=== PATIENT | female | born 1960 | race Caucasian/White ===

== ENCOUNTER → 2016-06-16 | Outpatient (CLI) | payer OTHER ==
--- NOTE | 2016-06-16 16:57 | CT ---
EXAMINATION TYPE: CT abdomen pelvis w con DATE OF EXAM: 06/16/2016 1:28 PM COMPARISON: None at this location. INDICATION: pt preparing for reversal of Colostomy DLP: 1134.9 mGycm, Automated exposure control for dose reduction was used. CONTRAST: 100 mL of Omnipaque 300. Study performed with Oral Contrast TECHNIQUE: Axial images were obtained from above the diaphragm to the pubic rami in the axial plane a t 5 mm thick sections. Reconstructed images are reviewed on the computer in the coronal plane. FINDINGS: Limited CT sections are obtained the lung bases. The lung bases are clear. CT ABDOMEN: Liver: There is a 2.5 x 1.7 cm hypodensity within the superior lateral right lobe liver. This is less well-defined on the early phase contrast but appears better delineated on the delayed images. This m easures 27 Hounsfield units. Small amount of low density may be adjacent to the right lobe of the maya er could be some fluid. Spleen: Normal Pancreas: Normal Adrenal glands: The adrenal glands are normal. Gallbladder: Normal Kidneys: No masses are evident. No hydronephrosis is present. There may be a 2.6 cm cyst measuring 9 Hounsfield units distending from the lateral inferior pole right kidney. The borders are indistinct . Delayed images were obtained through the kidneys. Tiny cortical renal cyst at the inferior anterio r pole right kidney is noted. A mid left renal cortex cyst is present Aorta: Vascular calcification is within the aorta. Inferior vena cava: Normal. CT PELVIS: There is a colostomy in the left anterior and within. Oral contrast extends distal small bowel loops. Distal colon appears decompressed There are loops of bowel which are incompletely distended or lack oral contrast limiting their evaluation. There is made of diverticular changes within the ascending c olon and ascending colon Posterior to the umbilicus there appears to be some increased inflammatory type change in the mesente ry. This is nonspecific. No discrete abscess is identified. No free air is evident. This is best visu alized series 4 image 53, series 8 image 20. Appendix: Normal as visualized. Urinary bladder: Normal. Genitourinary structures: Uterus appears unremarkable. Adnexal regions are clear. Osseous structures: No suspicious lytic or sclerotic lesions. Facet changes are within the lumbar spi ne. IMPRESSIONS: 1. Scattered diverticulosis. 2. Inflammatory change may be within the mesentery posterior to the periumbilical region of uncertain etiology. No abscess formation is evident this region. 3. Hypodensity adjacent to or within the right lobe of liver near the diaphragm. Abscess is not exclu ded. Cyst could be considered
== END | disposition home or self-care (01) ==
LOC: RADCTMAIN 12:36
PROVIDERS: ATTEND Surgery
DX: K57.90 Diverticulosis of intestine, part unspecified, without perforation or abscess without bleeding (principal)
CPT/HCPCS: 74177; Q9967

== ENCOUNTER → 2016-07-10 | Outpatient (CLI) | payer OTHER ==
--- NOTE | 2016-07-10 10:48 | MM ---
Reason for exam: follow-up at short interval from prior study. Last mammogram was performed 6 months ago. History: Patient is postmenopausal and had first child at age 31. Family history of breast cancer in maternal grandmother at age 38 and breast cancer in paternal grandmother at age 81. Benign core biopsy of the left breast, 2003. Reductions of both breasts, March 2002. Physical Findings: Nurse did not find any significant physical abnormalities on exam. MG Diagnostic Mammo LT w CAD CC, MLO, and LM view(s) were taken of the left breast. Prior study comparison: December 29, 2015, left breast MG work up mamm w CAD LT. December 27, 2015, bilateral MG screening mammo w CAD. The breast tissue is almost entirely fat. Finding: There are grouped/clustered calcifications in the left breast. There is a chronic nodularity in the left breast. No significant changes in finding since December 29, 2015 and December 27, 2015. These results were verbally communicated with the patient and result sheet given to the patient on 07/10/16. ASSESSMENT: Benign, BI-RAD 2 RECOMMENDATION: Return to routine screening mammogram schedule for both breasts. Back on schedule for December 2016.
== END | disposition home or self-care (01) ==
LOC: RADMAMWWP 09:33
PROVIDERS: ATTEND Obstetrics & Gynecology
DX: R92.8 Other abnormal and inconclusive findings on diagnostic imaging of breast (principal)

== ENCOUNTER → 2016-07-14 | Outpatient (CLI) | payer OTHER ==
[2016-07-14 16:38] LABS: Partial Thromboplastin Time 26.9 sec (22.0-30.0); Prothrombin Time 19.3 sec (9.0-12.0)
== END ==
LOC: LABWHC1 15:38
PROVIDERS: ATTEND Family Medicine
DX: I48.91 Unspecified atrial fibrillation (principal)
CPT/HCPCS: 36415; 85610; 85730

== ENCOUNTER 2016-08-07 07:06 | Inpatient (IN) | payer OTHER ==
[2016-08-01 16:53] VITALS: BMI 29.0
[~2016-08-07 07:06] MED LIST: DEXAMETHASONE SOD PHOSPHATE 10 MG/ML 1 ML VIAL IV ONE; HEPARIN SODIUM,PORCINE 5,000 UNIT/ML 1 ML VIAL SQ ONE; HYDROmorphone 1 MG/ML 1 ML SYRINGE IVP PRN; MIDAZOLAM 2 MG/2 ML VIAL IV PRN; ONDANSETRON 4 MG/2 ML VIAL IVP ONE; ceFAZolin 2 GM in SODIUM CHLORIDE 0.9% 100 ML IVPB ONE; metroNIDAZOLE-NS PMX 500 MG in SALINE 1 100ML.BAG IVPB ONE
[2016-08-07] MEDS ORDERED: LIDOCAINE 1% 20 ML VIAL (10MG/ML) FOR IV START INTRADERMA ONE (07:40)
[2016-08-07] MEDS: LACTATED RINGERS 1,000 ML IV SCH ×2 (07:40→08:58)
[2016-08-07 07:58] LABS: Basophils % (A) 1 %; CH 26.5; CHCM 32.7; Eosinophils # (A) 0.3 k/uL (0-0.7); Eosinophils % (A) 4 %; HCT 39.3 % (34.0-46.0); HDW 2.63; Luc # (Auto) 0.25; Luc % (Auto) 3; Lymphocytes # (A) 2.7 k/uL (1.0-4.8); Lymphocytes % (A) 37 %; MCH 26.8 pg (25.0-35.0); MCV 81.1 fL (80.0-100.0); Mean Platelet Volume 6.8; Monocytes # (A) 0.5 k/uL (0-1.0); Monocytes % (A) 7 %; Neutrophils # (A) 3.6 k/uL (1.3-7.7); Neutrophils % (A) 48 %; RBC 4.85 m/uL (3.80-5.40); RDW 15.7 % (11.5-15.5); WBC 7.4 k/uL (3.8-10.6); WBC (Perox) 7.41
[2016-08-07 08:06] LABS: ALT 30 U/L (9-52); AST 34 U/L (14-36); Alkaline Phosphatase 98 U/L (38-126); Anion Gap 13 mmol/L; Blood Urea Nitrogen 18 mg/dL (7-17); Calcium 9.8 mg/dL (8.4-10.2); Carbon Dioxide 23 mmol/L (22-30); Chloride 108 mmol/L (98-107); Glucose 97 mg/dL (74-99); INR 1.1 (<1.1); Non-African American GFR(MDRD) >60 (>60 ml/min/1.73 sqM); Potassium 4.2 mmol/L (3.5-5.1); Prothrombin Time 11.1 sec (9.0-12.0); Sodium 144 mmol/L (137-145); Total Bilirubin 0.7 mg/dL (0.2-1.3); Total Protein 8.1 g/dL (6.3-8.2)
[2016-08-07 08:28] LABS: Partial Thromboplastin Time 18.6 sec (22.0-30.0)
[2016-08-07] MEDS ORDERED: MIDAZOLAM 2 MG/2 ML VIAL ONE (08:59)
[2016-08-07] MEDS ORDERED: SUCCINYLCHOLINE CHLORIDE 100 MG/5 ML SYR IV ONE (08:59)
[2016-08-07] MEDS ORDERED: HEPARIN SODIUM,PORCINE 5,000 UNIT/ML 1 ML VIAL ONE (08:59)
[2016-08-07] MEDS ORDERED: LIDOCAINE 1% INJ 10MG/ML (20 ML MDV) ONE (08:59)
[2016-08-07] MEDS ORDERED: fentaNYL (PF) 50 MCG/ML 2 ML AMP ONE (08:59)
[2016-08-07] MEDS ORDERED: WATER FOR INJECTION, STERILE 10 ML VIAL IV ONE (08:59)
[2016-08-07] MEDS ORDERED: VECURONIUM 10 MG VIAL IV ONE (08:59)
[2016-08-07] MEDS ORDERED: PROPOFOL 10 MG/ML 20 ML VIAL IV ONE (08:59)
[2016-08-07] MEDS ORDERED: NALOXONE 0.4 MG/ML 1 ML VIAL IV PRN (09:01)
[2016-08-07] MEDS ORDERED: SODIUM CHLORIDE 0.9% 50 ML with ceFAZolin 2,000 MG IV ONE ×2 (09:07)
[2016-08-07] MEDS ORDERED: LACTATED RINGERS 1,000 ML IV ONE (09:50)
[2016-08-07] MEDS ORDERED: MEPERIDINE 50 MG/ML SYRINGE IVP ONE ×2 (11:09→11:34)
[2016-08-07] MEDS ORDERED: Antibiotics per Pharmacy 1 EACH MISC MISCELLANE PRN (11:10)
[2016-08-07] MEDS ORDERED: HYDROmorphone 1 MG/ML 1 ML SYRINGE IV PRN (11:22)
[2016-08-07] MEDS ORDERED: ONDANSETRON 4 MG/2 ML VIAL IVP PRN (11:24)
--- NOTE | 2016-08-07 11:31 | P.OP ---
Date of Procedure: 08/07/16 Preoperative Diagnosis: History of diverticulitis status post Bon sigmoid resection for perforation and abscess. Postoperative Diagnosis: Same Procedure(s) Performed: Takedown of sigmoid colostomy with the sigmoid rectal circular stapler the anastomosis Anesthesia: NIKA Surgeon: Aditya Lucio Estimated Blood Loss (ml): 150 Urine output (ml): 200 Pathology: other (Colostomy stoma with the anastomotic doughnuts) Condition: stable Disposition: PACU Indications for Procedure: The patient is a 56-year-old white female who more than 2 months ago underwent a Bon sigmoid resection for perforated diverticulitis with abscess of subsequent colonoscopy was unremarkable. Comes in for closure of colostomy and informed consent was obtained procedure having being explained to her including potential complication particular bleeding infection leak Surrounding injury etc. she understood and agreed to proceed. Operative Findings: Sigmoid colostomy with intra-abdominal adhesions. Some diverticulosis. Description of Procedure: After induction of general endotracheal anesthesia both lower extremities were placed in the low lithotomy position. He was placed. The colostomy stoma was closed with running 2-0 silk the skin over the stoma. The abdominal wall was then prepped with Betadine and draped as was the rectal area. Midline incision was made along her previous scar transferred to separate copious subcutaneous tissues. The fascia and peritoneum were then incised. The omental and small bowel adhesions were lysed. Bookwalter retractor was placed. Dignified by the Prolene sutures with an event. The stump was retracted up and mobilized. The stoma was then mobilized and delivered into the peritoneal cavity. The descending colon was mobilized all the way up to and including the splenic flexure circular staple anastomosis was then accomplished with the sterile tubing and inserted through the rectum over 29 mm stapler anastomosis being done. No evidence of leakage when tested under saline. Tissue at the anastomotic site on the shaft of the stapler. They pelvis and peritoneal cavity were thoroughly irrigated. Hemostasis was good and the field was dry. The posterior sheath and peritoneum at the colostomy site was closed with running 2-0 Vicryl. The fascia was closed with the running #1 PDS. Incision was closed also with running #1 double-stranded PDS the fascia. Subcutaneous tissues at both sides were thoroughly irrigated and the skin closed with marlo. Telfa jody were placed in between the marlo at the colostomy site. Dressings were applied. All counts were correct estimated blood loss 150 bowels. The patient was stable and was transferred to the recovery room in good and stable condition.
[2016-08-07] MEDS ORDERED: MIDAZOLAM 2 MG/2 ML VIAL IVP ONE (11:53)
[2016-08-07 13:42] LABS: Basophils % (A) 0 %; CH 26.3; CHCM 31.9; Eosinophils % (A) 0 %; HCT 37.9 % (34.0-46.0); HDW 2.57; HGB 12.4 gm/dL (11.4-16.0); Luc # (Auto) 0.04; Luc % (Auto) 0; Lymphocytes # (A) 1.3 k/uL (1.0-4.8); Lymphocytes % (A) 11 %; MCHC 32.6 g/dL (31.0-37.0); MCV 82.7 fL (80.0-100.0); Mean Platelet Volume 6.9; Monocytes # (A) 0.2 k/uL (0-1.0); Monocytes % (A) 2 %; Neutrophils # (A) 9.9 k/uL (1.3-7.7); Neutrophils % (A) 87 %; RBC 4.58 m/uL (3.80-5.40); RDW 15.6 % (11.5-15.5); WBC 11.5 k/uL (3.8-10.6); WBC (Perox) 11.99
[2016-08-07 13:52] LABS: ALT 28 U/L (9-52); AST 33 U/L (14-36); Alkaline Phosphatase 87 U/L (38-126); Anion Gap 11 mmol/L; Blood Urea Nitrogen 17 mg/dL (7-17); Calcium 9.4 mg/dL (8.4-10.2); Carbon Dioxide 22 mmol/L (22-30); Chloride 109 mmol/L (98-107); Glucose 118 mg/dL (74-99); Non-African American GFR(MDRD) >60 (>60 ml/min/1.73 sqM); Potassium 4.2 mmol/L (3.5-5.1); Sodium 142 mmol/L (137-145); Total Bilirubin 0.5 mg/dL (0.2-1.3); Total Protein 7.3 g/dL (6.3-8.2)
[2016-08-07] MEDS: MORPHINE SULFATE 4 MG/ML SYRINGE IVP PRN ×3 (14:04→21:54)
--- NOTE | 2016-08-07 15:48 | CONS ---
DATE OF CONSULTATION: REASON FOR CONSULTATION: Medical management of hypertension admitted to the hospital for elective reversal of sigmoid colostomy. The patient tolerated the procedure well. Patient underwent sigmoid colostomy reversal with sigmoid rectal circular stapler anastomosis. The patient currently on epidural for pain management. Patient otherwise denied any nausea or vomiting. No clubbing or cyanosis, chest pain or shortness of breath. No fever. No chills. Patient requesting pain medications. Medicine services has been consulted for ( ) medications and Coumadin monitoring. REVIEW OF SYSTEMS: CONSTITUTIONAL: No fever. No chills. RESPIRATORY: No cough or sputum production. CARDIOVASCULAR: No chest pain or shortness of breath. ABDOMEN: No nausea, vomiting. The patient does have abdominal pain. No diarrhea. RESPIRATORY: No cough or sputum production. GENITOURINARY: Negative. ENDOCRINE: Negative. PSYCHIATRIC: Negative. SKIN: Negative. MUSCULOSKELETAL: Negative. All other 14 point review of systems negative except as above. PAST MEDICAL HISTORY: Includes: 1. Hypertension. 2. History of provoked deep venous thrombosis in March 2016 followed by surgery. Currently on Coumadin. 3. Diverticulitis with perforated sigmoid colon and abscess. PAST SURGICAL HISTORY: Colonoscopy and a colostomy bag placement and abdominal surgery. FAMILY HISTORY: History of breast cancer in the family. Denied any history of hypertension. Does not have a history of diabetes mellitus or hypertension. SOCIAL HISTORY: Patient had a previous history of smoking; quit 30 years ago. Denies any alcohol use. Denied any drugs or IVDU. ALLERGIES: LATEX. Home medications include: 1. Amitriptyline. 2. Biotin. 3. Cardizem. 4. Docusate. 5. Hydrocodone. 6. Metoprolol. 7. Multivitamins. 8. Polyethylene glycol. 9. Potassium gluconate. 10. Colace. 11. Warfarin. PHYSICAL EXAMINATION: A 56-year-old female, lying in the bed comfortably, awake, alert, oriented, x3. He appears to be in mild distress due to pain. VITALS: Blood pressure is 128/68, pulse is 60, respirations 16, temperature afebrile. Pulse ox 99% on 2 L nasal cannula. HEENT: Atraumatic, normocephalic. Neck is supple. No JVD. CVS: S1, S2 heard. No murmurs, no gallop. LUNGS: Bilateral air entry is present. No wheezing. No crackles. Nonlabored breathing. ABDOMEN: Soft, tenderness at the surgical site. Bowel sounds are absent. No palpable organomegaly. No guarding. No rigidity. MEDICAL UNDERWRITER: Awake, alert, oriented, x3. No focal deficits. EXTREMITIES: No edema. Pulses palpable bilaterally. No clubbing or cyanosis. PSYCHIATRIC: Cooperative. LABORATORY DATA: WBC 11.5, hemoglobin 12.4, platelets 282, RDW 15.6, INR 1.1. Sodium 142, potassium 4.2, chloride 109, bicarb is 22. BUN 17. Creatinine 0.74. Blood sugar is 118, albumin 3.9. Operative report reviewed. IMPRESSION: 1. Status post reversal of sigmoid colostomy bag and anastomosis. Postoperative day 0. 2. History of perforated diverticulitis March 2016. 3. History of provoke deep venous thrombosis in March 2016 currently on anticoagulation with Coumadin. 4. Hypertension. Blood pressure is not elevated. I will hold blood pressure medications. 5. Deep venous thrombosis prophylaxis. 6. Anxiety. DISCUSSION AND PLAN: The patient will be continued on IV fluids and pain management. Currently n.p.o. except ice chips. Continue to hold blood pressure medications as the blood pressure is not elevated at this time, we will start back on blood pressure medications if start rising up. Patient will be started back on Coumadin tomorrow and continue with incentive spirometry and further recommendations based on the clinical course.
[2016-08-07] MEDS: HEPARIN SODIUM,PORCINE 5,000 UNIT/ML 1 ML VIAL SQ SCH (21:15)
[2016-08-08] MEDS: diphenhydrAMINE 50 MG/ML 1 ML VIAL IVP PRN ×2 (00:04→05:04)
[2016-08-08] MEDS: MORPHINE SULFATE 4 MG/ML SYRINGE IVP PRN ×6 (01:53→21:41)
[2016-08-08] MEDS: SODIUM CHLORIDE 0.9% 1,000 ML IV SCH ×4 (01:53→20:52)
[2016-08-08] MEDS: TEMAZEPAM 15 MG CAP PO PRN ×2 (02:00→21:41)
[2016-08-08] MEDS: BUPIVACAINE (PF) 0.5% 31.3 ML, HYDROmorphone 5 MG in SODIUM CHLORIDE 0.9% 216 ML EPIDURAL PRN (05:33)
[2016-08-08 07:47] LABS: Anion Gap 6 mmol/L; Blood Urea Nitrogen 13 mg/dL (7-17); Calcium 8.7 mg/dL (8.4-10.2); Carbon Dioxide 26 mmol/L (22-30); Chloride 109 mmol/L (98-107); Glucose 95 mg/dL (74-99); Non-African American GFR(MDRD) >60 (>60 ml/min/1.73 sqM); Potassium 4.5 mmol/L (3.5-5.1); Sodium 141 mmol/L (137-145)
[2016-08-08] MEDS: HEPARIN SODIUM,PORCINE 5,000 UNIT/ML 1 ML VIAL SQ SCH ×2 (08:46→20:53)
--- NOTE | 2016-08-08 09:05 | P.PN ---
Progress Note - Text 0804 Anesthesia POD 1. Status Post colostomy reversal under general endotracheal anesthesia with an epidrual catheter placed at L3 4 for post surgical pain releif. VAS (4, 6) with Bupivicaine 0.0625 % and Dilaudid 20 mcg / cc running at 8 cc / hr. Lower extremity strength (4/4). Minimal sedation. Site looks OK.
--- NOTE | 2016-08-08 11:25 | P.PN ---
Progress Note - Text The patient is afebrile. Vitals are stable. She is awake alert. Still a fair amount of discomfort despite the epidural. Her to be reduced because of itching. She is ambulatory no nausea or vomiting. Tolerating clear fluids by mouth. Urine output is good. Abdomen usual postoperative tenderness. Stable course. labsNoted. We'll advance her diet tomorrow. Add Ofirmev.
[2016-08-08] MEDS: ACETAMINOPHEN IV (For NPO) 1,000 MG in EMPTY BAG 1 BAG IVPB SCH ×3 (12:02→23:50)
[2016-08-08] MEDS: LACTATED RINGERS 1,000 ML IV SCH (12:07)
[2016-08-09] MEDS: MORPHINE SULFATE 4 MG/ML SYRINGE IVP PRN ×4 (04:14→18:06)
[2016-08-09] MEDS: SODIUM CHLORIDE 0.9% 1,000 ML IV SCH ×2 (05:43→19:26)
[2016-08-09] MEDS: ACETAMINOPHEN IV (For NPO) 1,000 MG in EMPTY BAG 1 BAG IVPB SCH (05:43)
[2016-08-09] MEDS: LACTATED RINGERS 1,000 ML IV SCH (06:33)
--- NOTE | 2016-08-09 07:38 | P.PN ---
Progress Note - Text The patient is afebrile. Vitals are stable. She is tolerating full liquid diet. Passing a [place] flatus. Abdomen is soft with usual postoperative tenderness. Stable postop. We will increase her diet. CORNELIO Lawrence.
[2016-08-09] MEDS: HEPARIN SODIUM,PORCINE 5,000 UNIT/ML 1 ML VIAL SQ SCH ×2 (07:54→21:22)
[2016-08-09] MEDS ORDERED: HYDROcodone/APAP 7.5-325MG 1 EACH TAB PO PRN (08:00)
--- NOTE | 2016-08-09 08:38 | P.PN ---
Progress Note - Text 08/09 656 am 56-year-old name status post colostomy reversal by Dr. Lucio. Patient has an epidural for postop pain control with the solution running at 12 mL an hour, patient is very uncomfortable yesterday and I increase the rate from 7-12 mL an hour. She also has started passing gas and is much more comfortable, she has no sensory or motor deficit and some ambulating well
--- NOTE | 2016-08-09 10:21 | PN ---
DATE OF SERVICE: 08/08/2016 Ms. Maldonado is a 56-year-old female with known history of hypertension, and history of perforated sigmoid colon and colostomy bag placement, admitted to the hospital for colostomy reversal. The patient tolerated the procedure well. Otherwise, patient is still complaining of abdominal pain today. Still maintained on epidural. Otherwise, the patient is able to ambulate in the hallways. Patient did not have a bowel movement today. No flatus yet. Otherwise, the patient is hemodynamically stable. Denied any complaints of chest pain or short of breath. REVIEW OF SYSTEMS: CONSTITUTIONAL: No fever. No chills. No weakness or malaise. RESPIRATORY: No cough or sputum production. CARDIOVASCULAR: No chest pain or shortness of breath. ABDOMEN: No nausea. The patient does have abdominal pain. No diarrhea. GENITOURINARY: Negative. ENDOCRINE: Negative. PSYCHIATRY: Negative. SKIN: Negative. MUSCULOSKELETAL: Negative. All other 14 point review of systems negative except as above. Current medications are reviewed. PHYSICAL EXAMINATION: 56-year-old female, lying in bed comfortably, awake, alert, oriented, x3. Appears to be in no apparent distress. VITALS: Blood pressure is 127/80, pulse 90, respiratory rate 16, temperature afebrile. Pulse ox 96% on room air. HEENT: Atraumatic, normocephalic. Neck is supple. No JVD. CARDIOVASCULAR: S1, S2 heard. No murmurs. No rubs. No gallops. LUNGS: Bilateral air entry is present. No wheezing. No crackles. ABDOMEN: Soft, mild tenderness over the surgical site. Bowel sounds are not heard. No guarding. No rigidity. DIRECTOR MISSION: Awake, alert, oriented, x3. No focal deficit. EXTREMITIES: No edema. Pulses palpable bilaterally. No clubbing or cyanosis. PSYCHIATRIC: Cooperative. LABORATORY DATA: Shows sodium 141, potassium 4.5, chloride 109, bicarb is 26. BUN 13, creatinine 0.81. IMPRESSION: 1. Status post reversal of sigmoid colostomy bag and anastomosis postoperative day one. 2. History of perforated diverticulitis March 2016. 3. History of provoked deep venous thrombosis in March 2016, currently on anticoagulation with Coumadin. 4. Hypertension, controlled. 5. Deep venous thrombosis prophylaxis. 6. Anxiety. DISCUSSION AND PLAN: Patient will be continued on pain management with epidural. Continue the IV fluids and encourage ambulation. Continue incentive spirometry. Otherwise, continue current management ( ) based on clinical course.
--- NOTE | 2016-08-09 16:34 | PN ---
Patient is a 56 -year-old admitted for sigmoid colectomy with ( ). Previous sigmoid colectomy with colostomy. Patient is passing gas. Did not move her bowel yet ( ) patient had post surgery DVT, patient is presently on subcutaneous heparin. If okay with surgery I will go ahead and start her back on her Coumadin. I do not believe patient will need bridging at this point of time. REVIEW OF SYSTEMS: CARDIOVASCULAR: No chest pain, no orthopnea, no PND, no palpitations. PULMONARY: Denied any shortness of breath. No cough or hemoptysis. GASTROINTESTINAL: Patient did not move her bowels but she has passed gas. ( ) bowel sounds. NEUROLOGIC: No headaches, no weakness, no numbness. Medications were reviewed. The patient still has some soreness in the abdomen. Medication reconciliation was done. On physical examination, temperature 99,5, pulse of 98, respiratory rate of 16, blood pressure is 141/82, saturating at 94% on room air. GENERAL: The patient is alert and oriented x3, not in any acute distress. Well developed, well nourished. HEENT: Pupils are round and equally reacting to light. EOMI. No scleral icterus. No conjunctival pallor. Normocephalic, atraumatic. No pharyngeal erythema. No thyromegaly. CARDIOVASCULAR: S1 and S2 present. No murmurs, rubs, or gallops. PULMONARY: Chest is clear to auscultation, no wheezing or crackles. ABDOMEN: ( ) No rebound or rigidity. Patient does have mild soreness and ( ) tenderness from surgery still and the patient has acute bowel sounds. MUSCULOSKELETAL: No joint swelling or deformity. EXTREMITIES: No cyanosis, clubbing, or pedal edema. NEUROLOGICAL: Gross neurological examination did not reveal any focal deficits. SKIN: No rashes. LABORATORY DATA: None available from today. Patient did have leukocytosis a couple of days ago. Probably a reactive response from surgery. I will obtain repeat labs tomorrow. Patient is hyperchloremic and the patient continues to be on normal saline which I will go ahead and discontinue as patient is tolerating oral diet well. ASSESSMENT AND PLAN: 1. Status post reversal of sigmoid colectomy and anastomosis. 2. Deep venous thrombosis recently in March 2016. Patient will be reinitiated back on Coumadin. 3. Hypertension, the patient restarted back on her metoprolol. The patient is mildly tachycardic because of not being on metoprolol. 4. History of perforated diverticulitis. 5. Anxiety disorder. PLAN: As mentioned above. Patient is on Cardizem as well at home, which we will reinitiate back. Patient denied any history of atrial fibrillation though.
[2016-08-09] MEDS ORDERED: NON-FORMULARY DRUG (Biotin [Biotin] 5 MG) PO SCH (17:00)
[2016-08-09] MEDS: DILTIAZEM CD 180 MG CAP.ER.24H PO SCH (17:41)
[2016-08-09] MEDS: AMITRIPTYLINE HCL 10 MG TAB PO SCH (17:42)
[2016-08-09] MEDS ORDERED: WARFARIN 2.5 MG TAB PO SCH (18:00)
[2016-08-09] MEDS: METOPROLOL SUCCINATE (ER) 25 MG TAB.ER.24H PO SCH ×2 (18:05→19:36)
[2016-08-09] MEDS: DOCUSATE 100 MG CAP PO SCH (19:35)
[2016-08-09] MEDS: SENNOSIDES-DOCUSATE SODIUM 1 EACH TAB PO SCH (19:36)
[2016-08-09] MEDS: POLYETHYLENE GLYCOL 3350 17 GM POWD.PACK PO SCH (19:36)
[2016-08-09] MEDS: BUPIVACAINE (PF) 0.5% 31.3 ML, HYDROmorphone 5 MG in SODIUM CHLORIDE 0.9% 216 ML EPIDURAL PRN (21:21)
[2016-08-09] MEDS: TEMAZEPAM 15 MG CAP PO PRN (21:30)
[2016-08-10] MEDS: LACTATED RINGERS 1,000 ML IV SCH (00:15)
[2016-08-10] MEDS: MORPHINE SULFATE 4 MG/ML SYRINGE IVP PRN ×2 (00:16→04:56)
[2016-08-10 07:33] LABS: INR 1.1 (<1.1); Prothrombin Time 10.9 sec (9.0-12.0)
[2016-08-10 07:41] LABS: Anion Gap 8 mmol/L; Blood Urea Nitrogen 7 mg/dL (7-17); Calcium 8.6 mg/dL (8.4-10.2); Carbon Dioxide 25 mmol/L (22-30); Chloride 104 mmol/L (98-107); Glucose 78 mg/dL (74-99); Non-African American GFR(MDRD) >60 (>60 ml/min/1.73 sqM); Potassium 3.5 mmol/L (3.5-5.1); Sodium 137 mmol/L (137-145)
[2016-08-10 08:23] LABS: CH 26.3; HCT 30.4 % (34.0-46.0); HDW 2.41; Hypochromasia Slight; MCH 26.6 pg (25.0-35.0); MCHC 31.4 g/dL (31.0-37.0); MCV 84.8 fL (80.0-100.0); RBC 3.59 m/uL (3.80-5.40); RDW 15.9 % (11.5-15.5); WBC 9.2 k/uL (3.8-10.6)
[2016-08-10 08:42] LABS: HGB 9.6 gm/dL (11.4-16.0)
--- NOTE | 2016-08-10 08:44 | P.PN ---
Progress Note - Text Date: 08/10/2016 Time: 711 The patient is status post colostomy reversal, postoperative day number 3 The patient has no complaints of nausea vomiting or headache. The patient does not complain of any lower extremity numbness or weakness. The epidural is running at 12 mL per hour. The epidural will be discontinued this morning. Pain medicines will be provided to the patient by the service.
[2016-08-10] MEDS ORDERED: HYDROcodone/APAP 7.5-325MG 1 EACH TAB PO ONE (12:01)
[2016-08-10] MEDS ORDERED: TEMAZEPAM 30 MG CAP PO PRN (12:01)
--- NOTE | 2016-08-10 12:04 | P.PN ---
Progress Note - Text Patient is coming along fairly well. She is anxious to go home. I did tolerate her dinner and breakfast this morning. Passed a small amount of blood with a bowel movement today. No nausea or vomiting. On examination temperature 99.7. Vitals are stable. Abdomen is soft with usual postoperative tenderness. Incisions look fine. WBC is normal. Hemoglobin 9.7. Impression progressive improvement. Anemia of blood loss. Low-grade fever. Recommendation monitor another 24 hours. Encouraged to ambulate. may shower.
[2016-08-10] MEDS: HEPARIN SODIUM,PORCINE 5,000 UNIT/ML 1 ML VIAL SQ SCH ×2 (12:08→20:55)
--- NOTE | 2016-08-10 14:06 | PN ---
Patient was on Coumadin, which I started her yesterday. I will try and see if patient is approved for Xarelto as she got new insurance. Patient did move her bowels, did pass gas. Still complaining of some soreness in the abdomen. REVIEW OF SYSTEMS: GASTROINTESTINAL: As described in HPI. CARDIOVASCULAR: No chest pain, no orthopnea, no PND, no palpitations. PULMONARY: Denied any shortness of breath. No cough or hemoptysis. NEUROLOGIC: No headaches, no weakness, no numbness. Medications were reviewed. PHYSICAL EXAMINATION: VITAL SIGNS: Temperature 99.7, pulse of 70, respiratory rate 16, blood pressure is 120/77. Saturating at 94% on room air. ABDOMINAL: Good bowel sounds. Abdominal is postsurgically padded. GENERAL: The patient is alert and oriented x3, not in any acute distress. Well developed, well nourished. HEENT: Pupils are round and equally reacting to light. EOMI. No scleral icterus. No conjunctival pallor. Normocephalic, atraumatic. No pharyngeal erythema. No thyromegaly. CARDIOVASCULAR: S1 and S2 present. No murmurs, rubs, or gallops. PULMONARY: Chest is clear to auscultation, no wheezing or crackles. MUSCULOSKELETAL: No joint swelling or deformity. EXTREMITIES: No cyanosis, clubbing, or pedal edema. NEUROLOGICAL: Gross neurological examination did not reveal any focal deficits. SKIN: No rashes. LABORATORY DATA: CBC, CMP are abnormal for low hemoglobin of 9.6 which is acute blood loss anemia from surgery which is an expected result. ASSESSMENT AND PLAN: 1. Status post reversal of sigmoid colectomy with anastomosis. 2. Acute blood loss anemia from surgery which is an expected outcome. 3. Deep venous thrombosis management as mentioned above. Will evaluate if patient is approved for Xarelto. 4. Hypertension. 5. History of perforated diverticulitis. 6. Anxiety disorder. I recommend to continue the rest of the medications. Discharge as per Surgical Services. Patient is stable medically at this time.
[2016-08-10] MEDS: HYDROcodone/APAP 7.5-325MG 1 EACH TAB PO PRN ×2 (17:07→23:17)
[2016-08-10] MEDS: DILTIAZEM CD 180 MG CAP.ER.24H PO SCH (17:08)
[2016-08-10] MEDS: METOPROLOL SUCCINATE (ER) 25 MG TAB.ER.24H PO SCH (17:08)
[2016-08-10] MEDS: AMITRIPTYLINE HCL 10 MG TAB PO SCH (17:08)
[2016-08-10] MEDS: POLYETHYLENE GLYCOL 3350 17 GM POWD.PACK PO SCH (17:09)
[2016-08-10] MEDS: DOCUSATE 100 MG CAP PO SCH (17:09)
[2016-08-10] MEDS: SENNOSIDES-DOCUSATE SODIUM 1 EACH TAB PO SCH (17:09)
[2016-08-10] MEDS ORDERED: WARFARIN 5 MG TAB PO SCH (18:00)
[2016-08-11 01:48] VITALS: RESP 16
[2016-08-11] MEDS: LACTATED RINGERS 1,000 ML IV SCH (04:05)
[2016-08-11] MEDS: HYDROcodone/APAP 7.5-325MG 1 EACH TAB PO PRN ×2 (05:04→10:31)
[2016-08-11 07:28] VITALS: BP 126/72; PULSE 68; TEMP 98.3
[2016-08-11 07:46] LABS: INR 1.1 (<1.1); Prothrombin Time 10.7 sec (9.0-12.0)
[2016-08-11] MEDS: HEPARIN SODIUM,PORCINE 5,000 UNIT/ML 1 ML VIAL SQ SCH (09:16)
--- NOTE | 2016-08-11 12:13 | P.DS ---
Providers Date of admission: 08/07/16 07:06 Attending physician: Aditya Lucio Consults: 08/07/16 11:21 Consult Physician Routine Consulting Provider: Heath Espinal Consult Reason/Comments: medical Mx Do you want consulting provider notified?: Yes Primary care physician: Javier Lam Plan - Discharge Summary New Discharge Prescriptions: HYDROcodone/APAP 7.5-325MG [[place] 7.5-325] 1 tab PO Q4H PRN #30 tab PRN Reason: Pain Discharge Medication List Amitriptyline HCl 20 mg PO 169908/01/16 [History] Biotin 5 mg PO 169908/01/16 [History] Diltiazem HCl [[place] Xt] 180 mg PO 169908/01/16 [History] Docusate [Colace] 200 mg PO 169908/01/16 [History] HYDROcodone/APAP 10-325MG [[place] 10-325] 1 tab PO BID 08/01/16 [History] Metoprolol Succinate [Toprol XL] 25 mg PO 169908/01/16 [History] Multivitamins, Thera [Multivitamin (formulary)] 1 tab PO 0 08/01/16 [History] Polyethylene Glycol 3350 [Miralax] 17 gm PO 169908/01/16 [History] Potassium Gluconate 99 mg PO 169908/01/16 [History] Sennosides-Docusate Sodium [Senokot-S] 2 tab PO 0 08/01/16 [History] Warfarin [Coumadin] 2.5 mg PO MOTUWE 08/01/16 [History] Warfarin [Coumadin] 5 mg PO SUTHFRSA 08/01/16 [History] HYDROcodone/APAP 7.5-325MG [[place] 7.5-325] 1 tab PO Q4H PRN #30 tab 08/11/16 [Rx ] Follow up Appointment(s)/Referral(s): Aditya Lucio MD [STAFF PHYSICIAN] - 1 Week Activity/Diet/Wound Care/Special Instructions: Soft diet, no heavy lifting X 5 weeks, resume home meds.
--- NOTE | 2016-08-11 13:04 | PN ---
Patient is a 56-year-old female admitted for end-to-end anastomosis reversal of colostomy, which she underwent surgery and patient is clinically doing well. Patient had a DVT in month of March, since then patient was started on anticoagulation. Patient was hospitalized for a prolonged period of time at that time and patient was told she needed to be on anticoagulation for 3 to 6 months and this the first time DVT. Patient already completed about 3 to 4 months of anticoagulation. I recommend to continue one more month of anticoagulation which we will provide as a free Xarelto here. Once she is done with the Xarelto, then anticoagulation can be discontinued and 4 to 6 weeks later, patient needs to be tested for procoagulant conditions. REVIEW OF SYSTEMS: CARDIOVASCULAR: No chest pain, no orthopnea, no PND, no palpitations. PULMONARY: Denied any shortness of breath. No cough or hemoptysis. GASTROINTESTINAL: No diarrhea, nausea or vomiting. No abdominal pain. Normoactive bowel sounds. NEUROLOGIC: No headaches, no weakness, no numbness. Medications were reviewed. PHYSICAL EXAMINATION: VITAL SIGNS: Temperature 98.3, pulse of 68, respiratory rate of 16, blood pressure is 126/72, saturating at 93% on room air. GENERAL: The patient is alert and oriented x3, not in any acute distress. Well developed, well nourished. HEENT: Pupils are round and equally reacting to light. EOMI. No scleral icterus. No conjunctival pallor. Normocephalic, atraumatic. No pharyngeal erythema. No thyromegaly. CARDIOVASCULAR: S1 and S2 present. No murmurs, rubs, or gallops. PULMONARY: Chest is clear to auscultation, no wheezing or crackles. ABDOMEN: Soft, nontender, nondistended, normoactive bowel sounds. No palpable organomegaly. MUSCULOSKELETAL: No joint swelling or deformity. EXTREMITIES: No cyanosis, clubbing, or pedal edema. NEUROLOGICAL: Gross neurological examination did not reveal any focal deficits. SKIN: No rashes. LABORATORY DATA: None available from today. ASSESSMENT AND PLAN: 1. Status post reversal of sigmoid colectomy. 2. Acute ( ) from surgery which is an expected outcome. 3. Deep venous thrombosis in the past in month of April after her previous surgery and management of her deep venous thrombosis as mentioned as the second paragraph in the interval history. 4. Hypertension. 5. History of perforated diverticulitis. 6. Anxiety disorder. Patient can be discharged from medical perspective. I did review the medication reconciliation. Recommend one more month of anticoagulation as mentioned above. A progress note will be forwarded to Dr. Javier Lam which patient needs to see him outpatient in about 3 to 7 days. Cardiac diet. Will sign off at this point of time.
== END 2016-08-11 16:04 | disposition home or self-care (01) | DRG 330 ==
LOC: 2ORWHC 07:06 → 3SUR 11:12
PROVIDERS: ADMIT Surgery; ATTEND Surgery
PROC: 0DQN0ZZ Repair Sigmoid Colon, Open Approach (ICD-10-PCS; principal; 2016-08-07 08:30)
PROC: 0WQF0ZZ Repair Abdominal Wall, Open Approach (ICD-10-PCS; principal; 2016-08-07 08:30)
DX: Z43.3 Encounter for attention to colostomy (principal); D62 Acute posthemorrhagic anemia; I10 Essential (primary) hypertension; Z86.718 Personal history of other venous thrombosis and embolism; Z79.01 Long term (current) use of anticoagulants; F41.9 Anxiety disorder, unspecified; K57.90 Diverticulosis of intestine, part unspecified, without perforation or abscess without bleeding; Z87.891 Personal history of nicotine dependence
CPT/HCPCS: 80048; 80053; 85025; 85027; 85610; 85730; 86850; 86900; 86901; 88304

== ENCOUNTER → 2017-02-21 | Outpatient (CLI) | payer OTHER ==
--- NOTE | 2017-02-22 11:45 | MM ---
Reason for exam: screening (asymptomatic). Last mammogram was performed 7 months ago. History: Patient is postmenopausal and had first child at age 31. Family history of breast cancer in maternal grandmother at age 38 and breast cancer in paternal grandmother at age 81. Benign core biopsy of the left breast, 2003. Reductions of both breasts, March 2002. Physical Findings: A clinical breast exam by your physician is recommended on an annual basis and results should be correlated with mammographic findings. MG Screening Mammo w CAD Bilateral CC and MLO view(s) were taken. Prior study comparison: July 10, 2016, left breast MG diagnostic mammo LT w CAD. December 29, 2015, left breast MG work up mamm w CAD LT. There are scattered fibroglandular densities. Finding: There are typically benign dystrophic, round calcifications in both breasts. Previous mammotome biopsy in the left breast. There is a chronic nodularity bilaterally. There is no discrete abnormality. ASSESSMENT: Benign, BI-RAD 2 RECOMMENDATION: Routine screening mammogram of both breasts in 1 year.
== END | disposition home or self-care (01) ==
LOC: RADMAMWWP 12:43
PROVIDERS: ATTEND Obstetrics & Gynecology
DX: Z12.31 Encounter for screening mammogram for malignant neoplasm of breast (principal)

== ENCOUNTER → 2017-03-14 | Outpatient (CLI) | payer OTHER ==
--- NOTE | 2017-03-14 20:10 | CT ---
EXAMINATION TYPE: CT abdomen pelvis w con DATE OF EXAM: 03/14/2017 COMPARISON: 06/16/2016 HISTORY: Stomach pain with possible hernia. CT DLP: [id number] mGycm Automated exposure control for dose reduction was used. TECHNIQUE: Helical acquisition of images was performed from the lung bases through the pelvis. CONTRAST: Performed with Oral Contrast and with IV Contrast, patient injected with 100 mL of Omnipaque 300. FINDINGS: Lung bases are clear. There is no pleural effusion. There is some linear low-attenuation on the super ior lateral right lobe of the liver of uncertain significance. This could be localized fluid. Spleen appears normal. There is no pancreatic mass. Gallbladder appears normal. Bile ducts are not di lated. There is no adrenal mass. Kidneys have normal size and contour. There is satisfactory contrast opacif ication. There is no hydronephrosis. There is no retroperitoneal adenopathy. There is mild umbilical hernia with transverse colon extending into the hernia. There is no incarceration. There is no eviden ce of a bowel obstruction. Appendix appears normal. I see no intestinal wall thickening. There are no dilated loops. There are a few sigmoid diverticula. There is no evidence of diverticulitis. There is no ascites. Bladder disten ds smoothly. There is no sign of pelvic mass. Bony structures are intact. Uterus is anteverted. There is suprapubic ventral hernia that contains small bowel. This is incarcerated. I do not see evidence of an obstruction. The hernia measures 5 x 2.5 cm. There are postsurgical changes with incision over the lower anterior abdomen. CONCLUSION: Compared to the last exam there is been reversal of the left side colostomy. Mild sigmoid diverticulo sis. No evidence of diverticulitis. There is new umbilical hernia that has transverse colon. There is a new incarcerated small bowel ventral hernia in the midline below the umbilicus. There is n o evidence of a bowel obstruction. There is fluid on the superior right lobe of the liver that is apparently some loculated ascites flui d that is decreased compared to old exam.
== END | disposition home or self-care (01) ==
LOC: RADCTMAIN 17:39
PROVIDERS: ATTEND Surgery
DX: K57.30 Diverticulosis of large intestine without perforation or abscess without bleeding (principal); K42.9 Umbilical hernia without obstruction or gangrene; K43.6 Other and unspecified ventral hernia with obstruction, without gangrene; R18.8 Other ascites; Z93.3 Colostomy status
CPT/HCPCS: 74177; Q9967